=== PATIENT | male | born 1980 | race Caucasian/White ===

== ENCOUNTER 2020-03-21 12:50 | Emergency (ER) | payer MEDICAID ==
[~2020-03-21] VITALS: Ht 177.8 cm; Wt 71.0 kg
[2020-03-21 12:55] VITALS: BP 132/85
[2020-03-21] MEDS ORDERED: AZITHROMYCIN 500 MG TABLET PO ONE (13:30)
[2020-03-21] MEDS ORDERED: CEFTRIAXONE 250 MG IM ONE (13:30)
[2020-03-21] MEDS ORDERED: CEFTRIAXONE 250 MG ONE (13:31)
[2020-03-21] MEDS ORDERED: AZITHROMYCIN 500 MG TABLET ONE ×2 (13:32)
--- NOTE | 2020-03-21 14:35 | NUR ---
BREAK RN: PT NOT IN ROOM.
== END 2020-03-21 14:37 | disposition home or self-care (01) ==
LOC: ED 13:54
DX: A54.01 Gonococcal cystitis and urethritis, unspecified (principal)
CPT/HCPCS: 87491; 87591; 96372; 99283; J0696